=== PATIENT | female | born 2000 | race Caucasian/White ===

== ENCOUNTER 2023-11-15 23:52 | Emergency (ER) | payer BC ==
[~2023-11-15] VITALS: Ht 165.1 cm; Wt 98.5 kg
[2023-11-16 00:33] LABS: BASO # 0.02 K/mm3 (0.02-0.10); HEMATOCRIT 44.2 % (37.0-47.0); HEMOGLOBIN 13.8 g/dL (12.5-16.0); LYMPH# 1.27 K/mm3 (1.50-4.00); MEAN CELL VOLUME 73 fl (78-100); MEAN CORPUSCULAR HEMOGLOBIN 23 pg (27-31); MEAN CORPUSCULAR HGB CONC 31 g/dL (33-37); MONO # 0.77 K/mm3 (0.20-0.80); NEU # 4.23 K/mm3 (1.40-6.50); PLATELET COUNT 220 K/mm3 (130-400); RED BLOOD COUNT 6.07 M/mm3 (4.10-5.30); RED CELL DISTRIBUTION WIDTH 17.5 % (11.5-14.5); WHITE BLOOD COUNT 6.3 K/mm3 (4.8-10.8)
[2023-11-16 00:38] LABS: CALCIUM 9.8 mg/dL (8.3-10.5)
[2023-11-16 00:39] LABS: ALBUMIN 4.8 g/dL (3.5-5.0); TOTAL PROTEIN 8.8 g/dL (6.4-8.3)
[2023-11-16 00:48] LABS: TOTAL BILIRUBIN 0.37 mg/dL (0.2-1.2)
[2023-11-16] MEDS ORDERED: ONDANSETRON HYDR4 MG PO (04:05)
[2023-11-16 04:23] VITALS: BP 120/83
== END 2023-11-16 04:25 | disposition home or self-care (01) ==
LOC: ED 23:52
PROVIDERS: Physician Assistant
DX: R11.2 Nausea with vomiting, unspecified (principal); J20.9 Acute bronchitis, unspecified; R55 Syncope and collapse
CPT/HCPCS: J2405; J7030

== ENCOUNTER → 2023-11-22 | Outpatient (CLI) | payer BC ==
[~2023-11-22] MED LIST: ONDANSETRON HYDR4 MG PO
== END ==
LOC: RAD 18:52
DX: M79.671 Pain in right foot (principal)